=== PATIENT | male | born 1975 | race Caucasian/White ===

== ENCOUNTER 2017-08-08 14:47 | Emergency (ER) | payer SELFPAY | END 2017-08-08 15:38 | disposition home or self-care (01) | LOC: SCSER 14:47 | DX: H00.15 Chalazion left lower eyelid (principal) | CPT/HCPCS: 99283 ==

== ENCOUNTER 2025-02-18 10:10 | Emergency (ER) | payer BC ==
[2025-02-18] MEDS ORDERED: Ibuprofen 200 MG TAB ONE (11:05)
[2025-02-18] MEDS ORDERED: Boostrix 0.5 ML (Tdap) VIAL (>/=7 yrs of age) ONE (11:05)
[2025-02-18] MEDS ORDERED: Lidocaine 1% PF 5 ML VIAL ONE (11:49)
[2025-02-18] MEDS ORDERED: Bacitracin 1 PK ONE (11:59)
== END 2025-02-18 12:30 | disposition home or self-care (01) ==
LOC: ERS 10:10
DX: S61.213A Laceration without foreign body of left middle finger without damage to nail, initial encounter (principal); E78.5 Hyperlipidemia, unspecified; I10 Essential (primary) hypertension; W27.0XXA Contact with workbench tool, initial encounter; Z23 Encounter for immunization
CPT/HCPCS: 12001; 90471; 90715